=== PATIENT | male | born 1955 | race African-American/Black ===

== ENCOUNTER 2018-10-24 13:14 | Emergency (ER) | payer OTHER ==
[2018-10-24 13:24] VITALS: TEMP 97.2; BMI 25.1
--- NOTE | 2018-10-24 15:36 | PDOC ---
Rapid Medical Evaluation Chief Complaint: Revisit, Lab Variance Time Seen by Provider: 10/24/18 15:25 Medical Evaluation: Allergies Allergy/AdvReac Type Severity Reaction Status Date / Time No Known Allergies Allergy Verified 10/24/18 13:20 Vital Signs Temp Pulse Resp BP Pulse Ox 97.2 F L 55 L 18 96/58 L 99 10/24/18 13:21 10/24/18 13:21 10/24/18 13:21 10/24/18 13:21 10/24/18 13:21 10/24/18 15:31 CC: pt left [facility] today after being admitted for pancreatitis on since he had c/o of vomitting and upper abd pain. Pt is a daily etoh abuser and has underlying psych d/o. Pt resides at a adult home and is accompanied by staff for " clearance". pt has no complaints presently Exam: no abd tenderness, vss, no jaundice Plan: cbc, comp, lipase, ua, iv Discharge Disposition - Diagnosis Laboratory test - Discharge Dispostion Last Admission D/C Date: 02/20/12 - Referrals - Patient Instructions - Post Discharge Activity
[2018-10-24 16:21] LABS: BASO % 0.7 % (0-2.0); EOS % 3.8 % (0-4.5); HEMOGLOBIN 15.8 GM/dL (11.7-16.9); LYMPH % 30.2 % (8-40); MCH 30.4 pg (25.7-33.7); MCHC 34.4 g/dl (32.0-35.9); MEAN CELL VOLUME 88.3 fl (80-96); MEAN PLT VOLUME 9.1 fl (7.5-11.1); MONO % 11.8 % (3.8-10.2); NEUT % 53.5 % (42.8-82.8); PLATELET COUNT 150 K/MM3 (134-434); RBC 5.21 M/mm3 (4.00-5.60); RDW 15.1 % (11.9-15.9)
--- NOTE | 2018-10-24 16:23 | PDOC ---
History of Present Illness - General Chief Complaint: Revisit, Lab Variance Stated Complaint: EVALUATION Time Seen by Provider: 10/24/18 15:25 History Source: Patient Exam Limitations: No Limitations - History of Present Illness Initial Comments: 10/24/18 16:59 CHIEF COMPLAINT: Lab tests HISTORY OF PRESENT ILLNESS: This is a 63-year-old male with a history of alcohol abuse, admission for alcohol detox, and alcoholic pancreatitis. He was admitted at [facility] over the weekend with pancreatitis. He signed out AMA. His living facility requires him to be reevaluated prior to returning home. The patient denies abdominal pain, nausea/vomiting, fevers/chills, or any other symptoms. He reports a prior to his admission he had "one drink of liquor and it didn't agree with me." He denies anxiety, nausea, headache, tremors, or any other withdrawal symptoms. Patient feels that he is in his usual state of health and would like to return home. Vital signs on arrival are unremarkable. REVIEW OF SYSTEMS: GENERAL/CONSTITUTIONAL: No fever or chills. No weakness. No weight change. HEAD, EYES, EARS, NOSE AND THROAT: No change in vision. No ear pain or discharge. No sore throat. CARDIOVASCULAR: No chest pain or palpitations. RESPIRATORY: No cough, wheezing, or shortness of breath. GASTROINTESTINAL: No nausea, vomiting, diarrhea or constipation. GENITOURINARY: No dysuria, frequency, or change in urination. MUSCULOSKELETAL: No joint or muscle swelling or pain. No neck or back pain. SKIN: No rash or easy bruising. NEUROLOGIC: No headache, vertigo, loss of consciousness, or loss of sensation. PSYCHIATRIC: No depression or anxiety. ENDOCRINE: No increased thirst. No abnormal weight change. HEMATOLOGIC/LYMPHATIC: No anemia, easy bleeding, or history of blood clots. ALLERGIC/IMMUNOLOGIC: No hives or skin allergy. No latex allergy. PHYSICAL EXAM: GENERAL: The patient is awake, alert, and fully oriented, in no acute distress. HEAD: Normal with no signs of trauma. ENT: Pupils equal, round and reactive to light, extraocular movements intact, sclera anicteric, conjunctiva clear. Neck supple. LUNGS: Clear to auscultation bilaterally. Normal excursion. No respiratory distress or use of accessory muscles. CV: RRR, S1/S2, no MRG. Cap refill < 2 sec. ABDOMEN: Soft, non-distended, non-tender. EXTREMITIES: Normal range of motion, no edema. NEUROLOGICAL: Normal speech, normal gait. CN II-XII grossly intact. PSYCH: Flat affect. SKIN: Warm, dry, normal turgor, no rashes or lesions noted. Past History - Past Medical History Allergies/Adverse Reactions: Allergies Allergy/AdvReac Type Severity Reaction Status Date / Time No Known Allergies Allergy Verified 10/24/18 13:20 Home Medications: Ambulatory Orders Benztropine Mesylate [Cogentin -] 1 mg PO BID 02/19/12 Risperidone [Risperdal] 1 mg PO BID 02/19/12 Diphenhydramine HCl [Benadryl -] 25 mg PO HS 10/24/18 Tamsulosin HCl [Flomax] 0.4 mg PO HS 10/24/18 Asthma: No Cardiac Disorders: No COPD: No Diabetes: No GI Disorders: No Disorders: No HTN: No Kidney Stones: No Seizures: Yes (alcohol related) - Surgical History Abdominal Surgery: No Appendectomy: No Cardiac Surgery: No Cholecystectomy: No Lung Surgery: No Neurologic Surgery: No Orthopedic Surgery: Yes (SX ON LEFT WRIST DUE TO FALL AT 16 YRS OLD) - Reproductive History Testicular Surgery: No - Suicide/Smoking/Psychosocial Hx Smoking History: Current some day smoker Number of Cigarettes Smoked Daily: 5 Information on smoking cessation initiated: No Hx Alcohol Use: Yes Substance Use Type: Alcohol Hx Substance Use Treatment: Yes *Physical Exam - Vital Signs Last Vital Signs Temp Pulse Resp BP Pulse Ox 97.2 F L 55 L 18 96/58 L 99 10/24/18 13:21 10/24/18 13:21 10/24/18 13:21 10/24/18 13:21 10/24/18 13:21 Moderate Sedation - Procedure Monitoring Vital Signs: Procedure Monitoring Vital Signs Temperature 97.2 F L 10/24/18 13:21 Pulse Rate 55 L 10/24/18 13:21 Respiratory Rate 18 10/24/18 13:21 Blood Pressure 96/58 L 10/24/18 13:21 O2 Sat by Pulse Oximetry (%) 99 10/24/18 13:21 ED Treatment Course - LABORATORY CBC & Chemistry Diagram: 10/24/18 16:10 10/24/18 16:10 Medical Decision Making - Medical Decision Making 10/24/18 17:03 A/P: 63-year-old male with recent admission for pancreatitis, returns asymptomatic but needing reevaluation prior to readmission to his living facility. 1. Labs including CBC, CMP, lipase 2. By mouth trial Lipase 598, not within range of acute pancreatitis. LFTs mildly elevated, but lower than at prior visit. Tolerating PO. Will dc to facility - discussed with [facility] staff who will pick up attendant patient. *DC/Admit/Observation/Transfer Diagnosis at time of Disposition: Laboratory test - Discharge Dispostion Disposition: HOME Condition at time of disposition: Stable Decision to Admit order: No - Referrals Referrals: [facility] [place] [Provider Group] - Patient Instructions Printed Discharge Instructions: [place] Diet, DI for Pancreatitis Additional Instructions: Mr Irwin is cleared to return to [facility]. -Rest and stay well-hydrated -Slowly introduce a bland diet (instructions enclosed) -Follow up with a primary care doctor - referral enclosed if you do not have one -Return for abdominal pain, vomiting/inability to keep down fluids, or any other concerning symptoms - Post Discharge Activity
[2018-10-24 16:51] LABS: ALBUMIN 3.6 g/dl (3.4-5.0); ALK PHOS 67 U/L (45-117); ANION GAP 7 MMOL/L (8-16); BILIRUBIN,TOTAL 0.8 mg/dL (0.2-1); BLOOD UREA NITROGEN 14 mg/dL (7-18); CALCIUM 8.3 mg/dL (8.5-10.1); CHLORIDE 104 mmol/L (98-107); CO2 25 mmol/L (21-32); GLUCOSE,RANDOM 97 mg/dL (74-106); LIPASE 598 U/L (73-393); POTASSIUM 4.2 mmol/L (3.5-5.1); SGOT/AST 70 U/L (15-37); SGPT/ALT 67 U/L (13-61); SODIUM 136 mmol/L (136-145); TOT PROT 7.5 g/dl (6.4-8.2)
[2018-10-24 16:58] LABS: URINE APPEARANCE CLEAR; URINE BILIRUBIN NEGATIVE (<2.0 mg/dL); URINE COLOR YELLOW; URINE GLUCOSE (UA) NEGATIVE (NEGATIVE); URINE KETONE NEGATIVE (NEGATIVE); URINE LEUK ESTERASE NEGATIVE (NEGATIVE); URINE NITRITE NEGATIVE (NEGATIVE); URINE PROTEIN NEGATIVE (NEGATIVE); URINE UROBILINOGEN 4.0 E.U/dl mg/dL (0.2-1.0)
[2018-10-24 17:18] VITALS: BP 134/86
[2018-10-24 17:21] VITALS: PULSE 55
== END 2018-10-24 17:23 | disposition home or self-care (01) ==
LOC: JER 13:14
DX: K85.90 Acute pancreatitis without necrosis or infection, unspecified (principal)
CPT/HCPCS: 36415; 80053; 81003; 83690; 85025; 99282-25

== ENCOUNTER 2018-10-31 10:22 | Inpatient (IN) | payer OTHER ==
--- NOTE | 2018-10-31 12:34 | PDOC ---
History of Present Illness - General Chief Complaint: Pain, Acute Stated Complaint: PCP SENT FOR ADMIN Time Seen by Provider: 10/31/18 11:56 History Source: Patient Exam Limitations: No Limitations - History of Present Illness Travel History: No Initial Comments: 10/31/18 12:10 63-year-old male with history of recent pancreatitis, alcohol induced pancreatitis, alcohol related seizures and underlying psychiatric disorder presents with nausea vomiting upper abdominal pain, and mild generalized weakness. Patient states was discharged here last week and went back to his assisted living psychiatric facility where he states again went back to drinking alcohol and now with symptoms as mentioned above. Patient denies fever , chills, bloody stool, bloody emesis, no abdominal pain, chest pain, shortness of breath. Timing/Duration: reports: intermittent Quality: reports: moderate, cramping Abdominal Pain Onset Location: reports: RUQ, epigastric Pain Radiation: reports: no radiation Activities at Onset: reports: none Aggravating Factors: improves with: None Alleviating Factors: improves with: None Past History - Travel Traveled outside of the country in the last 30 days: No - Past Medical History Allergies/Adverse Reactions: Allergies Allergy/AdvReac Type Severity Reaction Status Date / Time No Known Allergies Allergy Verified 10/31/18 10:37 Home Medications: Ambulatory Orders Benztropine Mesylate [Cogentin -] 1 mg PO BID 02/19/12 Risperidone [Risperdal] 1 mg PO BID 02/19/12 Diphenhydramine HCl [Benadryl -] 25 mg PO HS 10/24/18 Asthma: No Cardiac Disorders: No COPD: No Diabetes: No GI Disorders: No Disorders: No HTN: No Kidney Stones: No Seizures: Yes (alcohol related) - Surgical History Abdominal Surgery: No Appendectomy: No Cardiac Surgery: No Cholecystectomy: No Lung Surgery: No Neurologic Surgery: No Orthopedic Surgery: Yes (SX ON LEFT WRIST DUE TO FALL AT 16 YRS OLD) - Reproductive History Testicular Surgery: No - Immunization History Immunization Up to Date: Yes - Suicide/Smoking/Psychosocial Hx Smoking History: Current every day smoker Number of Cigarettes Smoked Daily: 5 Information on smoking cessation initiated: No Hx Alcohol Use: Yes (DAILY) Drug/Substance Use Hx: No Substance Use Type: Alcohol Hx Substance Use Treatment: Yes Patient Lives Alone: No Lives with/in: assisted living Abd/GI Specific PMHX - Complaint Specific PMHX Hepatitis: No Pancreatitis: No Review of Systems - Review of Systems Able to Perform ROS?: Yes Constitutional: Yes: Weakness HEENTM: No: Symptoms Reported Respiratory: No: Symptoms reported Cardiac (ROS): No: Symptoms Reported ABD/GI: Yes: Nausea, Vomiting, Abdominal cramping : No: Symptoms Reported Musculoskeletal: No: Symptoms Reported Integumentary: No: Symptoms Reported Neurological: No: Symptoms reported *Physical Exam - Vital Signs Last Vital Signs Temp Pulse Resp BP Pulse Ox 98.8 F 78 16 116/77 95 10/31/18 10:38 10/31/18 10:38 10/31/18 10:38 10/31/18 10:38 10/31/18 10:38 - Physical Exam General Appearance: Yes: Nourished, Appropriately Dressed. No: Apparent Distress HEENT: negative: Pale Conjunctivae Neck: positive: Supple Respiratory/Chest: positive: Lungs Clear, Normal Breath Sounds. negative: Respiratory Distress, Accessory Muscle Use Cardiovascular: positive: Regular Rhythm, Regular Rate. negative: Murmur Gastrointestinal/Abdominal: positive: Soft, Tenderness (epigastric and RUQ tenderness) Musculoskeletal: negative: CVA Tenderness Extremity: positive: Normal Capillary Refill. negative: Pedal Edema Integumentary: positive: Normal Color, Warm, Moist Neurologic: positive: Motor Strength 5/5 (ambulatory), Other (fine tremors to upper extremity x2 ) Moderate Sedation - Procedure Monitoring Vital Signs: Procedure Monitoring Vital Signs Temperature 98.8 F 10/31/18 10:38 Pulse Rate 78 10/31/18 10:38 Respiratory Rate 16 10/31/18 10:38 Blood Pressure 116/77 10/31/18 10:38 O2 Sat by Pulse Oximetry (%) 95 10/31/18 10:38 Heart Score/ECG Review - ECG Intrepretation Rhythm: Regular Rhythm (52) ED Treatment Course - LABORATORY CBC & Chemistry Diagram: 10/31/18 12:00 10/31/18 14:05 Medical Decision Making - Medical Decision Making 10/31/18 12:37 CC: etoh hx w/ recent pancreatitis ( dx'd at [place]) seen here on 10/24 on discharged home ( lipase 500s). Now w/ upper abd pain, n/v/weakness Exam: ruq and epigastric tenderness, vss, fine tremors to upper extremeties Plan: labs, ivf, zofran, protonix, urine, ekg, ativan 1mg iv 10/31/18 15:28 Laboratory Tests 10/31/18 10/31/18 12:00 14:05 WBC 6.4 Hgb 15.5 Hct 44.8 Plt Count 227 D Monocytes % 12.6 H Sodium 134 L Potassium 5.9 H Chloride 102 Carbon Dioxide 26 Anion Gap 6 L BUN 13 Creatinine 1.4 H Creat Clearance w eGFR 51.02 Random Glucose 77 Calcium 8.8 Magnesium 2.0 AST 133 H ALT 78 H Alkaline Phosphatase 87 Total Protein 8.4 H Albumin 3.5 Total Amylase 256 H Lipase 672 H Patient ordered for ammonia level, Kayexalate, an abdominal CT along with second liter of fluid and nothing by mouth judy esparza 1. 10/31/18 16:43 Consider for admission secondary to hyperkalemia and elevated lipase and amylase and alcohol-related withdrawal *DC/Admit/Observation/Transfer Diagnosis at time of Disposition: Hyperkalemia, Elevated lipase, Tremor of both hands, Alcohol abuse - Discharge Dispostion Decision to Admit order: Yes - Referrals - Patient Instructions - Post Discharge Activity
[2018-10-31] MEDS ORDERED: PANTOPRAZOLE SODIUM 40 MG in SODIUM CHLORIDE 100 ML IVPB ONE (12:39)
[2018-10-31] MEDS ORDERED: ONDANSETRON 4 MG/2 ML VIAL IVPUSH ONE (12:39)
[2018-10-31] MEDS ORDERED: SODIUM CHLORIDE 1,000 ML IV STA ×2 (12:39→15:29)
--- NOTE | 2018-10-31 12:41 | PDOC ---
*Physical Exam - Vital Signs Last Vital Signs Temp Pulse Resp BP Pulse Ox 98.8 F 78 16 116/77 95 10/31/18 10:38 10/31/18 10:38 10/31/18 10:38 10/31/18 10:38 10/31/18 10:38 ED Treatment Course - LABORATORY CBC & Chemistry Diagram: 11/01/18 05:40 11/01/18 05:40 Medical Decision Making - Medical Decision Making 10/31/18 12:40 Pt seen by the Advanced Practice Provider under my direct supervision Ancillary studies reviewed I agree with plan as outlined by the Advanced Practice Provider RAAD Riddle *DC/Admit/Observation/Transfer Diagnosis at time of Disposition: Hyperkalemia, Elevated lipase, Tremor of both hands, Alcohol abuse - Discharge Dispostion Condition at time of disposition: Good - Prescriptions - Referrals - Patient Instructions - Post Discharge Activity
[2018-10-31] MEDS ORDERED: ONDANSETRON 4 MG/2 ML VIAL ONE (12:48)
[2018-10-31] MEDS ORDERED: PANTOPRAZOLE SODIUM 40 MG/100 ML BAG IVPB ONE (12:48)
[2018-10-31 14:30] LABS: BASO % 1.1 % (0-2.0); EOS % 0.4 % (0-4.5); HEMATOCRIT 44.8 % (35.4-49); HEMOGLOBIN 15.5 GM/dL (11.7-16.9); LYMPH % 23.5 % (8-40); MCH 30.1 pg (25.7-33.7); MCHC 34.7 g/dl (32.0-35.9); MEAN CELL VOLUME 86.9 fl (80-96); MEAN PLT VOLUME 8.3 fl (7.5-11.1); MONO % 12.6 % (3.8-10.2); NEUT % 62.4 % (42.8-82.8); PLATELET COUNT 227 K/MM3 (134-434); RBC 5.15 M/mm3 (4.00-5.60); RDW 15.2 % (11.9-15.9); WHITE BLOOD COUNT 6.4 K/mm3 (4.0-10.0)
[2018-10-31 14:49] LABS: ALBUMIN 3.5 g/dl (3.4-5.0); ALK PHOS 87 U/L (45-117); AMYLASE 256 U/L (25-115); ANION GAP 6 MMOL/L (8-16); BILIRUBIN,TOTAL 0.9 mg/dL (0.2-1); BLOOD UREA NITROGEN 13 mg/dL (7-18); CALCIUM 8.8 mg/dL (8.5-10.1); CHLORIDE 102 mmol/L (98-107); CO2 26 mmol/L (21-32); CREATININE 1.4 mg/dL (0.55-1.3); GLUCOSE,RANDOM 77 mg/dL (74-106); LIPASE 672 U/L (73-393); POTASSIUM 5.9 mmol/L (3.5-5.1); SGOT/AST 133 U/L (15-37); SGPT/ALT 78 U/L (13-61); SODIUM 134 mmol/L (136-145); TOT PROT 8.4 g/dl (6.4-8.2)
[2018-10-31] MEDS ORDERED: LORazepam 2 MG/ML SDV VIAL ONE (14:54)
[2018-10-31] MEDS ORDERED: SODIUM POLYSTYRENE SULFONATE 15 GM/60 ML BOTTLE PO ONE (15:29)
--- NOTE | 2018-10-31 16:14 | EKG ---
Test Reason : Blood Pressure : / mmHG Vent. Rate : 052 BPM Atrial Rate : 052 BPM P-R Int : 162 ms QRS Dur : 132 ms QT Int : 474 ms P-R-T Axes : 056 -52 045 degrees QTc Int : 440 ms SINUS BRADYCARDIA LEFT AXIS DEVIATION RIGHT BUNDLE BRANCH BLOCK ABNORMAL ECG NO PREVIOUS ECGS AVAILABLE Confirmed by BOO BLARI, DESTINY ([id number]) on 10/31/2018 4:13:55 PM Referred By: Confirmed By:DESTINY HADDAD MD
--- NOTE | 2018-10-31 18:19 | HP ---
CHIEF COMPLAINT: Abdominal Pain/vomiting/diarrhea 1 week PCP: HISTORY OF PRESENT ILLNESS: 63 yo male with PMH alcoholic pancreatitis (recent admission at [facility] left AMA), 2 withdrawal seizures in the past, and possible psych disorder admitted with abdominal pain, nausea, vomiting, and diarrhea for 1 week. As per chart he was recently admitted at [facility] and treated for pancreatitis, he reportedly left AMA but could not go back to his assisted living with pancreatitis, so he was evaluated in the [facility] ED from which he was deemed medically safe for discharge at that time. He returned to his assisted living facility, began drinking again about 5-6 cans of beer per day. He presents today with 1 week of nausea, vomiting (nonbloody), and diarrhea. He states he is having abdominal pain. He is very adamant that his last drink was yesterday and he has not vomited since yesterday as well. As far as history of seizures he states he has had 2 withdrawal seizures in the past, not within the last year. He denies any fevers but endorses some chills. ER course was notable for: (1) Lipase 675 (2) CT Abd ordered, pending (3) 1 mg ativan IV Recent Travel: none PAST MEDICAL HISTORY: as above PAST SURGICAL HISTORY: Left wrist surgery 16 yrs old Social History: Smokin cigars per day Alcohol: 5-6 beers per day Drugs: Denies Family History: Allergies No Known Allergies Allergy (Verified 10/31/18 10:37) HOME MEDICATIONS: Home Medications Medication Instructions Recorded Benztropine Mesylate [Cogentin -] 1 mg PO BID 02/19/12 Risperidone [Risperdal] 1 mg PO BID 02/19/12 Diphenhydramine HCl [Benadryl -] 25 mg PO HS 10/24/18 REVIEW OF SYSTEMS CONSTITUTIONAL: chills Absent: fever, , diaphoresis, generalized weakness, malaise, loss of appetite, weight change HEENT: Absent: rhinorrhea, nasal congestion, throat pain, throat swelling, difficulty swallowing, mouth swelling, ear pain, eye pain, visual changes CARDIOVASCULAR: Absent: chest pain, syncope, palpitations, irregular heart rate, lightheadedness , peripheral edema RESPIRATORY: Absent: cough, shortness of breath, dyspnea with exertion, orthopnea, wheezing, stridor, hemoptysis GASTROINTESTINAL: abdominal pain, nausea, vomiting, diarrhea Absent: , abdominal distension, constipation, melena, hematochezia GENITOURINARY: Absent: dysuria, frequency, urgency, hesitancy, hematuria, flank pain, genital pain MUSCULOSKELETAL: Absent: myalgia, arthralgia, joint swelling, back pain, neck pain SKIN: Absent: rash, itching, pallor HEMATOLOGIC/IMMUNOLOGIC: Absent: easy bleeding, easy bruising, lymphadenopathy, frequent infections ENDOCRINE: Absent: unexplained weight gain, unexplained weight loss, heat intolerance, cold intolerance NEUROLOGIC: Absent: headache, focal weakness or paresthesias, dizziness, unsteady gait, seizure, mental status changes, bladder or bowel incontinence PSYCHIATRIC: Absent: anxiety, depression, suicidal or homicidal ideation, hallucinations. PHYSICAL EXAMINATION Vital Signs - 24 hr 10/31/18 10:38 Temperature 98.8 F Pulse Rate 78 Respiratory 16 Rate Blood Pressure 116/77 O2 Sat by Pulse 95 Oximetry (%) GENERAL: A&O, no acute distress HEAD: Normocephalic, atraumatic. EYES: PERRL, no scleral icterus EARS, NOSE, THROAT: oropharynx clear without exudates. Moist mucous membranes. NECK: supple without lymphadenopathy LUNGS: CTA b/l, no crackles or wheezes HEART: Regular rate and rhythm, normal S1 and S2 without murmur ABDOMEN: Soft, RUQ and epigastric region tender to palpation, normoactive bowel sounds MUSCULOSKELETAL: No bony deformities or tenderness. EXTREMITIES: No peripheral edema. NEUROLOGICAL: Cranial nerves II-XII grossly intact. Normal speech. PSYCHIATRIC: Cooperative. Good eye contact. Appropriate mood and affect. Laboratory Results - last 24 hr 10/31/18 10/31/18 10/31/18 12:00 14:05 16:55 WBC 6.4 RBC 5.15 Hgb 15.5 Hct 44.8 MCV 86.9 MCH 30.1 MCHC 34.7 RDW 15.2 Plt Count 227 D MPV 8.3 Absolute Neuts (auto) 4.0 Neutrophils % 62.4 Lymphocytes % 23.5 D Monocytes % 12.6 H Eosinophils % 0.4 D Basophils % 1.1 Nucleated RBC % 0 Sodium 134 L Potassium 5.9 H Chloride 102 Carbon Dioxide 26 Anion Gap 6 L BUN 13 Creatinine 1.4 H Creat Clearance w eGFR 51.02 Random Glucose 77 Calcium 8.8 Magnesium 2.0 Total Bilirubin 0.9 AST 133 H ALT 78 H Alkaline Phosphatase 87 LD Total 684 H Total Protein 8.4 H Albumin 3.5 Total Amylase 256 H Lipase 672 H ASSESSMENT/PLAN: 63 yo male with PMH alcoholic pancreatitis (recent admission at [facility] left AMA), 2 withdrawal seizures in the past, and possible psych disorder admitted with abdominal pain, nausea, vomiting, and diarrhea for 1 week Alcoholic Hepatitis vs Alcoholic Pancreatitis -Pt with recent admission at other institution for pancreatitis -Lipase noted to be 675, less that 3X upper limit but elevation noted -Pt with clinical symptoms of pancreatitis -CT Abd pending, if no signs of pancreatitis then more likely alcoholic hepatitis with mildly elevated LFTs noted -NPO for tonight -LR @ 125 cc/hr -Hold Abx for now pending imaging Concern for Alcohol Withdrawal -Monitor CIWA for signs of alcohol withdrawal -Ativan PRN if CIWA > 8 -Current CIWA at 3 -last drink was yesterday -Banana Bag -Multivitamin -Thiamine and Folate PO Daily in AM DVT Prophylaxis -Heparin 5000 units SQ TID FEN -Fluids: LR @ 125 cc/hr -Electrolytes: No electrolyte abnormalities, BMP in AM -Nutrition: NPO Disposition Med/Surg Visit type - Emergency Visit Emergency Visit: Yes Care time: The patient presented to the Emergency Department on the above date and was hospitalized for further evaluation of their emergent condition. - New Patient This patient is new to me today: Yes Date on this admission: 10/31/18 - Critical Care Critical Care patient: No
[2018-10-31] MEDS ORDERED: LORazepam 1 MG TABLET PO PRN (18:22)
[2018-10-31] MEDS ORDERED: FOLIC ACID INJECTION - 1 MG, THIAMINE HCL 100 MG, MULTIVIT INJECTION ADULT 10 ML in SOD... IVPB ONE ×2 (18:30→21:25)
[2018-10-31] MEDS: LACTATED RINGERS SOLUTION 1,000 ML IV SCH (19:20)
--- NOTE | 2018-10-31 21:15 | PN ---
Teaching Attending Note Name of Resident: Kush Hinton ATTENDING PHYSICIAN STATEMENT I saw and evaluated the patient. I reviewed the resident's note and discussed the case with the resident. I agree with the resident's findings and plan as documented. SUBJECTIVE: Complains of ongoing abdominal pain/N/V/D. No fever/chills. No reported falls/seizures/LOC. No melena/hematochezia/hematemesis. OBJECTIVE: Afebrile, Hemodynamically Stable Last Vital Signs Temp Pulse Resp BP Pulse Ox 98.8 F 78 16 116/77 95 10/31/18 10:38 10/31/18 10:38 10/31/18 10:38 10/31/18 10:38 10/31/18 10:38 HEENT - Atraumatic, Normocephalic. Mild tremor of outstretched arms. Heart - S1, S2, RRR Lungs - Clear to auscultation Abdomen - Mild epigastric tenderness. Soft, no guarding/rebound. Bowel Sounds normal. Extremities - No edema/ No calf tenderness. Neuro - AAO x 2. Moving all 4 extremities. Laboratory Results - last 24 hr 10/31/18 10/31/18 10/31/18 12:00 14:05 16:55 WBC 6.4 RBC 5.15 Hgb 15.5 Hct 44.8 MCV 86.9 MCH 30.1 MCHC 34.7 RDW 15.2 Plt Count 227 D MPV 8.3 Absolute Neuts (auto) 4.0 Neutrophils % 62.4 Lymphocytes % 23.5 D Monocytes % 12.6 H Eosinophils % 0.4 D Basophils % 1.1 Nucleated RBC % 0 Sodium 134 L Potassium 5.9 H Chloride 102 Carbon Dioxide 26 Anion Gap 6 L BUN 13 Creatinine 1.4 H Creat Clearance w eGFR 51.02 Random Glucose 77 Calcium 8.8 Magnesium 2.0 Total Bilirubin 0.9 AST 133 H ALT 78 H Alkaline Phosphatase 87 LD Total 684 H Total Protein 8.4 H Albumin 3.5 Total Amylase 256 H Lipase 672 H Current Medications Generic Name Dose Route Start Last Admin Trade Name Freq PRN Reason Stop Dose Admin Benztropine Mesylate 1 mg 10/31/18 22:00 Cogentin - PO BID MULU Diphenhydramine HCl 25 mg 10/31/18 22:00 Benadryl - PO HS MULU Folic Acid 1 mg 11/01/18 10:00 Folic Acid - PO DAILY [facility] Heparin Sodium (Porcine) 5,000 unit 10/31/18 22:00 Heparin - SQ TID MULU Lactated Ringer's 1,000 mls @ 125 mls/hr 10/31/18 17:45 10/31/18 19:20 Lactated Ringers Solution IV 125 mls/hr ASDIR MULU Administration Folic Acid 1 mg/ Thiamine HCl 1,000 mls @ 250 mls/hr 10/31/18 18:30 10/31/18 19:20 100 mg/ Multivitamins/Minerals IVPB 10/31/18 22:29 250 mls/hr 10 ml/ Sodium Chloride ONCE ONE Administration Lorazepam 1 mg 10/31/18 18:22 Ativan - PO Q4H PRN WITHDRAWAL(CONT SUBST) Multivitamins/Minerals/Vitamin C 1 tab 11/01/18 10:00 Tab-A-Vit - PO DAILY [facility] Risperidone 1 mg 10/31/18 22:00 Risperdal - PO BID [facility] Thiamine HCl 100 mg 11/01/18 10:00 Vitamin B1 - PO DAILY [facility] Home Medications Medication Instructions Recorded Benztropine Mesylate [Cogentin -] 1 mg PO BID 02/19/12 Risperidone [Risperdal] 1 mg PO BID 02/19/12 Diphenhydramine HCl [Benadryl -] 25 mg PO HS 10/24/18 ASSESSMENT AND PLAN: 63 year old male with history of alcohol abuse, alcohol related pancreatitis, alcohol with drawal seizure x 2, psychiatric disorder, currently presents with 1 week history of abdominal pain, nausea, vomiting, diarrhea. He had recent admission at [facility] for Pancreatitis and left AMA. Last alcoholic beverage 10/30 1. Alcoholic Hepatitis likely CT A/P - no evidence of Pancreatitis Lipase mildly elevated at 672 - will monitor. Will attempt to get records from [facility] for CT findings and Lipase levels there. Will keep NPO and hydrate with IV fluids. Zofran for nausea and Morphine prn for pain. Stool for Cdiff if further diarrhea. 2. History of Alcohol Abuse and Alcohol withdrawal Seizures Monitor with CIWA for signs of Alcohol withdrawal and ativan prn as per protocol. Banana Bag, Thiamine, Folate, MVI. 3. Elevated Transaminases Likely sec to Alcoholic Hepatitis Abdominal US requested. Will also send Hepatitis work-up. 4. Psychiatric Condition - no delusions/hallucination. Continue Risperidone and Benztropine. 5. Hyperkalemia, K 5.9. ECG - no changes. Will recheck after Kayexalate (given in ED). DVT Px - Heparin SQ GI Px - PPI
[2018-10-31] MEDS ORDERED: ONDANSETRON 4 MG/2 ML VIAL IVPB PRN (21:18)
[2018-10-31] MEDS ORDERED: MORPHINE SULFATE 2 MG/ML VIAL IVPUSH PRN (21:19)
[2018-10-31] MEDS ORDERED: risperiDONE 0.5 MG TABLET (FP) ONE (22:18)
[2018-10-31] MEDS ORDERED: diphenhydrAMINE HCL 25 MG CAPSULE (FP) PO ONE (22:18)
[2018-10-31] MEDS: risperiDONE 1 MG TABLET (FP) PO SCH (22:19)
[2018-10-31] MEDS: HEPARIN NA (PORCINE) 5,000 UNITS/ML 1ML VIAL SQ SCH (22:19)
[2018-10-31] MEDS: diphenhydrAMINE HCL 25 MG CAPSULE (FP) PO SCH (22:19)
[2018-10-31] MEDS: BENZTROPINE MESYLATE 1 MG TABLET (FP) PO SCH (22:35)
[2018-11-01] MEDS: HEPARIN NA (PORCINE) 5,000 UNITS/ML 1ML VIAL SQ SCH ×3 (05:52→22:08)
[2018-11-01 07:17] LABS: BASO % 0.9 % (0-2.0); EOS % 3.3 % (0-4.5); HEMATOCRIT 43.7 % (35.4-49); HEMOGLOBIN 14.1 GM/dL (11.7-16.9); LYMPH % 35.8 % (8-40); MCH 28.4 pg (25.7-33.7); MCHC 32.3 g/dl (32.0-35.9); MEAN CELL VOLUME 87.8 fl (80-96); MEAN PLT VOLUME 8.7 fl (7.5-11.1); MONO % 12.7 % (3.8-10.2); NEUT % 47.3 % (42.8-82.8); PLATELET COUNT 189 K/MM3 (134-434); RBC 4.97 M/mm3 (4.00-5.60); RDW 14.6 % (11.9-15.9); WHITE BLOOD COUNT 5.1 K/mm3 (4.0-10.0)
[2018-11-01 07:25] LABS: INR 1.1 (0.83-1.09)
[2018-11-01] MEDS: LACTATED RINGERS SOLUTION 1,000 ML IV SCH ×2 (08:00→15:42)
[2018-11-01 08:50] LABS: ALBUMIN 2.6 g/dl (3.4-5.0); ALK PHOS 62 U/L (45-117); ANION GAP 4 MMOL/L (8-16); BILIRUBIN,TOTAL 0.8 mg/dL (0.2-1); BLOOD UREA NITROGEN 19 mg/dL (7-18); CALCIUM 7.8 mg/dL (8.5-10.1); CHLORIDE 109 mmol/L (98-107); CO2 26 mmol/L (21-32); CREATININE 1.1 mg/dL (0.55-1.3); GLUCOSE,RANDOM 80 mg/dL (74-106); LIPASE 743 U/L (73-393); PHOSPHOROUS 3.2 mg/dL (2.5-4.9); POTASSIUM 4.2 mmol/L (3.5-5.1); SGOT/AST 74 U/L (15-37); SGPT/ALT 58 U/L (13-61); SODIUM 139 mmol/L (136-145); TOT PROT 5.9 g/dl (6.4-8.2)
--- NOTE | 2018-11-01 09:13 | PN ---
Physical Exam: SUBJECTIVE: Patient seen and examined this AM. He states he is feeling better and his abdominal is improving. He denies any nausea/vomiting/diarrhea overnight , has not had since 2 days ago OBJECTIVE: Vital Signs Period Temp Pulse Resp BP Sys/العلي Pulse Ox Last 24 Hr 97.8 F-98.8 F 42-78 16-20 116-139/77-92 95-97 GENERAL: A&O, no acute distress HEAD: Normocephalic, atraumatic. EYES: PERRL, no scleral icterus EARS, NOSE, THROAT: oropharynx clear without exudates. Moist mucous membranes. NECK: supple without lymphadenopathy LUNGS: CTA b/l, no crackles or wheezes HEART: Regular rate and rhythm, normal S1 and S2 without murmur ABDOMEN: Soft, RUQ and epigastric region tender to palpation, normoactive bowel sounds MUSCULOSKELETAL: No bony deformities or tenderness. EXTREMITIES: No peripheral edema. Fine tremor in fingertips NEUROLOGICAL: Cranial nerves II-XII grossly intact. Normal speech. PSYCHIATRIC: Cooperative. Good eye contact. Appropriate mood and affect. Laboratory Results - last 24 hr 10/31/18 10/31/18 10/31/18 12:00 14:05 16:55 WBC 6.4 RBC 5.15 Hgb 15.5 Hct 44.8 MCV 86.9 MCH 30.1 MCHC 34.7 RDW 15.2 Plt Count 227 D MPV 8.3 Absolute Neuts (auto) 4.0 Neutrophils % 62.4 Lymphocytes % 23.5 D Monocytes % 12.6 H Eosinophils % 0.4 D Basophils % 1.1 Nucleated RBC % 0 PT with INR INR Sodium 134 L Potassium 5.9 H Chloride 102 Carbon Dioxide 26 Anion Gap 6 L BUN 13 Creatinine 1.4 H Creat Clearance w eGFR 51.02 Random Glucose 77 Calcium 8.8 Phosphorus Magnesium 2.0 Total Bilirubin 0.9 AST 133 H ALT 78 H Alkaline Phosphatase 87 LD Total 684 H Total Protein 8.4 H Albumin 3.5 Total Amylase 256 H Lipase 672 H 11/01/18 11/01/18 11/01/18 05:40 05:40 05:40 WBC 5.1 RBC 4.97 Hgb 14.1 Hct 43.7 MCV 87.8 MCH 28.4 MCHC 32.3 RDW 14.6 Plt Count 189 MPV 8.7 Absolute Neuts (auto) 2.4 Neutrophils % 47.3 D Lymphocytes % 35.8 D Monocytes % 12.7 H Eosinophils % 3.3 D Basophils % 0.9 Nucleated RBC % 0 PT with INR 13.00 INR 1.10 H Sodium 139 Potassium 4.2 Chloride 109 H Carbon Dioxide 26 Anion Gap 4 L BUN 19 H Creatinine 1.1 Creat Clearance w eGFR > 60 Random Glucose 80 Calcium 7.8 L Phosphorus 3.2 Magnesium 2.0 Total Bilirubin 0.8 AST 74 H ALT 58 Alkaline Phosphatase 62 LD Total Total Protein 5.9 L Albumin 2.6 L Total Amylase Lipase 743 H Active Medications Generic Name Dose Route Start Last Admin Trade Name Freq PRN Reason Stop Dose Admin Benztropine Mesylate 1 mg 10/31/18 22:00 10/31/18 22:35 Cogentin - PO 1 mg BID MULU Administration Diphenhydramine HCl 25 mg 10/31/18 22:00 10/31/18 22:19 Benadryl - PO 25 mg HS MULU Administration Folic Acid 1 mg 11/01/18 10:00 Folic Acid - PO DAILY [facility] Heparin Sodium (Porcine) 5,000 unit 10/31/18 22:00 11/01/18 05:52 Heparin - SQ Not Given TID [facility] Lactated Ringer's 1,000 mls @ 125 mls/hr 10/31/18 17:45 10/31/18 19:20 Lactated Ringers Solution IV 125 mls/hr ASDIR MULU Administration Lorazepam 1 mg 10/31/18 18:22 Ativan - PO Q4H PRN WITHDRAWAL(CONT SUBST) Morphine Sulfate 1 mg 10/31/18 21:19 Morphine Sulfate IVPUSH Q6H PRN PAIN LEVEL 6-10 Multivitamins/Minerals/Vitamin C 1 tab 11/01/18 10:00 Tab-A-Vit - PO DAILY [facility] Ondansetron HCl 8 mg 10/31/18 21:18 Zofran Injection IVPB Q8H PRN NAUSEA Pantoprazole Sodium 40 mg 11/01/18 10:00 Protonix Iv IVPUSH DAILY [facility] Risperidone 1 mg 10/31/18 22:00 10/31/18 22:19 Risperdal - PO 1 mg BID MULU Administration Thiamine HCl 100 mg 11/01/18 10:00 Vitamin B1 - PO DAILY [facility] ASSESSMENT/PLAN: 63 yo male with PMH alcoholic pancreatitis (recent admission at [facility] left AMA), 2 withdrawal seizures in the past, and possible psych disorder admitted with abdominal pain, nausea, vomiting, and diarrhea for 1 week Alcoholic Hepatitis -Pt with recent admission at other institution for pancreatitis -Lipase mildly elevated, 743 -CT Abd without acute signs of pancreatitis -RUQ US unremarkable -Tolerating diet well -Medically stable for discharge to [facility] Detox Concern for Alcohol Withdrawal -Monitor CIWA for signs of alcohol withdrawal -Ativan PRN if CIWA > 8 -Current CIWA at 2 -last drink was yesterday -Multivitamin -Thiamine and Folate PO Daily -To go to [facility] for further detox/rehab once bed available, case discussed with Dr. Pro DVT Prophylaxis -Heparin 5000 units SQ TID FEN -Fluids: can d/c as tolerating diet -Electrolytes: No electrolyte abnormalities, BMP in AM -Nutrition: Regular diet Disposition Med/Surg Visit type - Emergency Visit Emergency Visit: Yes ED Registration Date: 10/31/18 Care time: The patient presented to the Emergency Department on the above date and was hospitalized for further evaluation of their emergent condition. - New Patient This patient is new to me today: No - Critical Care Critical Care patient: No
[2018-11-01] MEDS: BENZTROPINE MESYLATE 1 MG TABLET (FP) PO SCH ×2 (09:38→22:08)
[2018-11-01] MEDS: FOLIC ACID 1 MG TABLET (FP) PO SCH (09:38)
[2018-11-01] MEDS: risperiDONE 1 MG TABLET (FP) PO SCH ×2 (09:38→22:08)
[2018-11-01] MEDS: MULTIVITAMINS (DAILY MVI) TABLET (FP) PO SCH (09:38)
[2018-11-01] MEDS: THIAMINE HCL 100 MG TABLET (FP) PO SCH (09:38)
[2018-11-01] MEDS ORDERED: PANTOPRAZOLE SODIUM 40 MG VIAL IVPUSH SCH (10:00)
[2018-11-01 11:42] LABS: URINE APPEARANCE CLEAR; URINE BILIRUBIN NEGATIVE (<2.0 mg/dL); URINE COLOR YELLOW; URINE GLUCOSE (UA) NEGATIVE (NEGATIVE); URINE KETONE NEGATIVE (NEGATIVE); URINE LEUK ESTERASE NEGATIVE (NEGATIVE); URINE NITRITE NEGATIVE (NEGATIVE); URINE PROTEIN NEGATIVE (NEGATIVE); URINE UROBILINOGEN 4.0 E.U/dl mg/dL (0.2-1.0)
[2018-11-01 12:00] LABS: COCAINE, UR NEGATIVE ng/ml (CUTOFF=300); METHADONE, UR NEGATIVE ng/ml (CUTOFF=300); OPIATES, URI NEGATIVE ng/ml (CUTOFF=300); PHENCYCLIDINE,URINE NEGATIVE ng/ml (CUTOFF=25); URINE AMPHETAMINES NEGATIVE ng/ml (CUTOFF=500); URINE BARBITURATES NEGATIVE ng/ml (CUTOFF=200)
[2018-11-01 12:06] LABS: URINE BENZODIAZEPINES POSITIVE ng/ml (CUTOFF=200)
--- NOTE | 2018-11-01 14:34 | PN ---
Teaching Attending Note Name of Resident: Kush Hinton ATTENDING PHYSICIAN STATEMENT I saw and evaluated the patient. I reviewed the resident's note and discussed the case with the resident. I agree with the resident's findings and plan as documented. SUBJECTIVE: Feels better. no further abdominal pain/nausea/vomiting. OBJECTIVE: Afebrile, Hemodynamically Stable. Last Vital Signs Temp Pulse Resp BP Pulse Ox 98.2 F 65 18 126/91 98 11/01/18 13:44 11/01/18 13:44 11/01/18 13:44 11/01/18 13:44 11/01/18 09:00 HEENT - Atraumatic, Normocephalic. Mild tremor of outstretched arms. Heart - S1, S2, RRR Lungs - Clear to auscultation Abdomen - Mild epigastric tenderness on deep palpation. Soft, no guarding/ rebound. Bowel Sounds normal. Extremities - No edema/ No calf tenderness. Neuro - AAO x 2. Moving all 4 extremities. Laboratory Tests 10/31/18 10/31/18 10/31/18 12:00 14:05 16:55 WBC 6.4 RBC 5.15 Hgb 15.5 Hct 44.8 MCV 86.9 MCH 30.1 MCHC 34.7 RDW 15.2 Plt Count 227 D MPV 8.3 Absolute Neuts (auto) 4.0 Neutrophils % 62.4 Lymphocytes % 23.5 D Monocytes % 12.6 H Eosinophils % 0.4 D Basophils % 1.1 Nucleated RBC % 0 PT with INR INR Sodium 134 L Potassium 5.9 H Chloride 102 Carbon Dioxide 26 Anion Gap 6 L BUN 13 Creatinine 1.4 H Creat Clearance w eGFR 51.02 Random Glucose 77 Calcium 8.8 Phosphorus Magnesium 2.0 Total Bilirubin 0.9 AST 133 H ALT 78 H Alkaline Phosphatase 87 LD Total 684 H Total Protein 8.4 H Albumin 3.5 Total Amylase 256 H Lipase 672 H Urine Color Urine Appearance Urine pH Ur Specific [place] Urine Protein Urine Glucose (UA) Urine Ketones Urine Blood Urine Nitrite Urine Bilirubin Urine Urobilinogen Ur Leukocyte Esterase Opiates Screen Methadone Screen Barbiturate Screen Phencyclidine Screen Ur Amphetamines Screen MDMA (Ecstasy) Screen Benzodiazepines Screen Cocaine Screen U Marijuana (THC) Screen 11/01/18 11/01/18 11/01/18 05:40 05:40 05:40 WBC 5.1 RBC 4.97 Hgb 14.1 Hct 43.7 MCV 87.8 MCH 28.4 MCHC 32.3 RDW 14.6 Plt Count 189 MPV 8.7 Absolute Neuts (auto) 2.4 Neutrophils % 47.3 D Lymphocytes % 35.8 D Monocytes % 12.7 H Eosinophils % 3.3 D Basophils % 0.9 Nucleated RBC % 0 PT with INR 13.00 INR 1.10 H Sodium 139 Potassium 4.2 Chloride 109 H Carbon Dioxide 26 Anion Gap 4 L BUN 19 H Creatinine 1.1 Creat Clearance w eGFR > 60 Random Glucose 80 Calcium 7.8 L Phosphorus 3.2 Magnesium 2.0 Total Bilirubin 0.8 AST 74 H ALT 58 Alkaline Phosphatase 62 LD Total Total Protein 5.9 L Albumin 2.6 L Total Amylase Lipase 743 H Urine Color Urine Appearance Urine pH Ur Specific [place] Urine Protein Urine Glucose (UA) Urine Ketones Urine Blood Urine Nitrite Urine Bilirubin Urine Urobilinogen Ur Leukocyte Esterase Opiates Screen Methadone Screen Barbiturate Screen Phencyclidine Screen Ur Amphetamines Screen MDMA (Ecstasy) Screen Benzodiazepines Screen Cocaine Screen U Marijuana (THC) Screen 11/01/18 11/01/18 11:00 11:00 WBC RBC Hgb Hct MCV MCH MCHC RDW Plt Count MPV Absolute Neuts (auto) Neutrophils % Lymphocytes % Monocytes % Eosinophils % Basophils % Nucleated RBC % PT with INR INR Sodium Potassium Chloride Carbon Dioxide Anion Gap BUN Creatinine Creat Clearance w eGFR Random Glucose Calcium Phosphorus Magnesium Total Bilirubin AST ALT Alkaline Phosphatase LD Total Total Protein Albumin Total Amylase Lipase Urine Color Yellow Urine Appearance Clear Urine pH 7.0 Ur Specific [place] 1.016 Urine Protein Negative Urine Glucose (UA) Negative Urine Ketones Negative Urine Blood Negative Urine Nitrite Negative Urine Bilirubin Negative Urine Urobilinogen 4.0 e.u/dl Ur Leukocyte Esterase Negative Opiates Screen Negative Methadone Screen Negative Barbiturate Screen Negative Phencyclidine Screen Negative Ur Amphetamines Screen Negative MDMA (Ecstasy) Screen Negative Benzodiazepines Screen Positive A* Cocaine Screen Negative U Marijuana (THC) Screen Negative Current Medications Generic Name Dose Route Start Last Admin Trade Name Freq PRN Reason Stop Dose Admin Benztropine Mesylate 1 mg 10/31/18 22:00 11/01/18 09:38 Cogentin - PO 1 mg BID MULU Administration Diphenhydramine HCl 25 mg 10/31/18 22:00 10/31/18 22:19 Benadryl - PO 25 mg HS MULU Administration Folic Acid 1 mg 11/01/18 10:00 11/01/18 09:38 Folic Acid - PO 1 mg DAILY MULU Administration Heparin Sodium (Porcine) 5,000 unit 10/31/18 22:00 11/01/18 14:16 Heparin - SQ Not Given TID MULU Lactated Ringer's 1,000 mls @ 125 mls/hr 10/31/18 17:45 11/01/18 08:00 Lactated Ringers Solution IV 125 mls/hr ASDIR MULU Administration Lorazepam 1 mg 10/31/18 18:22 Ativan - PO Q4H PRN WITHDRAWAL(CONT SUBST) Morphine Sulfate 1 mg 10/31/18 21:19 Morphine Sulfate IVPUSH Q6H PRN PAIN LEVEL 6-10 Multivitamins/Minerals/Vitamin C 1 tab 11/01/18 10:00 11/01/18 09:38 Tab-A-Vit - PO 1 tab DAILY MULU Administration Ondansetron HCl 8 mg 10/31/18 21:18 Zofran Injection IVPB Q8H PRN NAUSEA Pantoprazole Sodium 40 mg 11/01/18 10:00 11/01/18 09:38 Protonix Iv IVPUSH 40 mg DAILY MULU Administration Risperidone 1 mg 10/31/18 22:00 11/01/18 09:38 Risperdal - PO 1 mg BID MULU Administration Thiamine HCl 100 mg 11/01/18 10:00 11/01/18 09:38 Vitamin B1 - PO 100 mg DAILY MULU Administration ASSESSMENT AND PLAN: 63 year old male from [facility] with history of alcohol abuse, alcohol related pancreatitis, alcohol withdrawal seizure x 2, psychiatric disorder, currently presents with 1 week history of abdominal pain, nausea, vomiting, diarrhea. He had recent admission at [facility] for Pancreatitis and left AMA. Last alcoholic beverage 10/30/[address] A/P - no evidence of Pancreatitis Lipase mildly elevated at 743, suspect chronic - will monitor. Abdominal pain/nausea/vomiting/diarrhea resolved. Will attempt to get records from [facility] for CT findings and Lipase levels there. Will initiate on diet today. 2. History of Alcohol Abuse and Alcohol withdrawal Seizures Monitor with CIWA for signs of Alcohol withdrawal and ativan prn as per protocol. Banana Bag, Thiamine, Folate, MVI. 3. Elevated Transaminases - improving Likely sec to Alcoholic Hepatitis Abdominal US normal. Hepatitis work-up pending. 4. Psychiatric Condition (unknown) - no delusions/hallucination. Continue Risperidone and Benztropine. 5. Hyperkalemia, resolved s/p Kayexalate. DVT Px - Heparin SQ GI Px - PPI
[2018-11-01] MEDS: NICOTINE 14 MG/24 HOURS TOPICAL PATCH TD SCH (15:41)
--- NOTE | 2018-11-01 17:37 | PN ---
S Progress Note (SOAP) Subjective: patient referred for consultation regarding etoh use , reports 5 x 24 oz cans of beer x " a long time " , withdrawal seizure several years ago , presented to ED with nausea/ vomiting , per medicine patient is medically stable and requesting transfer to [facility] , currently on Ativan prn and not used medication since admission. PMHX : pancreatitis Objective: wnwd resting in bed , + anxiety , mild tremors . Vital Signs - 24 hr 10/31/18 11/01/18 11/01/18 23:30 02:30 05:46 Temperature 97.8 F 97.8 F Pulse Rate 78 42 L Pulse Rate [ 61 Left Radial] Respiratory 18 20 20 Rate Blood Pressure 127/84 139/92 Blood Pressure 120/84 [Left Arm] O2 Sat by Pulse 97 97 Oximetry (%) 11/01/18 11/01/18 11/01/18 09:00 10:00 13:44 Temperature 98 F 98.2 F Pulse Rate 45 L 65 Pulse Rate [ Left Radial] Respiratory 18 18 Rate Blood Pressure 130/70 126/91 Blood Pressure [Left Arm] O2 Sat by Pulse 98 Oximetry (%) 11/01/18 17:36 Assessment: alcohol dependence Plan: continue prn Ativan , transfer to [facility] when bed available . discussed with patient , agreeable w/ POC .
[2018-11-01] MEDS: diphenhydrAMINE HCL 25 MG CAPSULE (FP) PO SCH (22:08)
[2018-11-02 02:14] LABS: HEP.C VIRUS AB >11.0 s/co ratio (0.0-0.9)
[2018-11-02] MEDS: HEPARIN NA (PORCINE) 5,000 UNITS/ML 1ML VIAL SQ SCH ×3 (07:04→21:05)
--- NOTE | 2018-11-02 07:06 | PN ---
Physical Exam: SUBJECTIVE: Patient seen and examined. No new c/o. No abdominal pain, no vomiting. Pending bed at [facility]. OBJECTIVE: Vital Signs Period Temp Pulse Resp BP Sys/العلي Pulse Ox Last 24 Hr 97.2 F-98.2 F 44-65 18-18 106-164/63-91 96-98 Vital Signs Temperature 97.6 F 11/02/18 10:42 Pulse Rate 52 L 11/02/18 10:42 Respiratory Rate 16 11/02/18 10:42 Blood Pressure 115/57 L 11/02/18 10:42 O2 Sat by Pulse Oximetry (%) 96 11/02/18 09:00 GENERAL: The patient is awake, alert, and fully oriented, in no acute distress. LUNGS: Breath sounds equal, clear to auscultation bilaterally, no wheezes, no crackles HEART: Regular rate and rhythm, S1, S2 ABDOMEN: Soft, nontender, nondistended, normoactive bowel sounds, no guarding EXTREMITIES: 2+ pulses, warm, well-perfused, no edema. NEUROLOGICAL: Cranial nerves II through XII grossly intact. Fine tremors outstretched hands, no flapping tremors. Symmetric face, no lateralizing signs. Normal speech, gait not observed. CBC, BMP 11/01/18 05:40 11/01/18 05:40 Laboratory Results - last 24 hr 11/01/18 11/01/18 11/01/18 05:40 05:40 05:40 WBC 5.1 RBC 4.97 Hgb 14.1 Hct 43.7 MCV 87.8 MCH 28.4 MCHC 32.3 RDW 14.6 Plt Count 189 MPV 8.7 Absolute Neuts (auto) 2.4 Neutrophils % 47.3 D Lymphocytes % 35.8 D Monocytes % 12.7 H Eosinophils % 3.3 D Basophils % 0.9 Nucleated RBC % 0 PT with INR 13.00 INR 1.10 H Sodium 139 Potassium 4.2 Chloride 109 H Carbon Dioxide 26 Anion Gap 4 L BUN 19 H Creatinine 1.1 Creat Clearance w eGFR > 60 Random Glucose 80 Calcium 7.8 L Phosphorus 3.2 Magnesium 2.0 Total Bilirubin 0.8 AST 74 H ALT 58 Alkaline Phosphatase 62 Total Protein 5.9 L Albumin 2.6 L Lipase 743 H Urine Color Urine Appearance Urine pH Ur Specific [place] Urine Protein Urine Glucose (UA) Urine Ketones Urine Blood Urine Nitrite Urine Bilirubin Urine Urobilinogen Ur Leukocyte Esterase Opiates Screen Methadone Screen Barbiturate Screen Phencyclidine Screen Ur Amphetamines Screen MDMA (Ecstasy) Screen Benzodiazepines Screen Cocaine Screen U Marijuana (THC) Screen Hepatitis A IgM Ab Hep Bs Antigen Hep B Core IgM Ab Hepatitis C Antibody 11/01/18 11/01/18 11/01/18 05:40 11:00 11:00 WBC RBC Hgb Hct MCV MCH MCHC RDW Plt Count MPV Absolute Neuts (auto) Neutrophils % Lymphocytes % Monocytes % Eosinophils % Basophils % Nucleated RBC % PT with INR INR Sodium Potassium Chloride Carbon Dioxide Anion Gap BUN Creatinine Creat Clearance w eGFR Random Glucose Calcium Phosphorus Magnesium Total Bilirubin AST ALT Alkaline Phosphatase Total Protein Albumin Lipase Urine Color Yellow Urine Appearance Clear Urine pH 7.0 Ur Specific [place] 1.016 Urine Protein Negative Urine Glucose (UA) Negative Urine Ketones Negative Urine Blood Negative Urine Nitrite Negative Urine Bilirubin Negative Urine Urobilinogen 4.0 e.u/dl Ur Leukocyte Esterase Negative Opiates Screen Negative Methadone Screen Negative Barbiturate Screen Negative Phencyclidine Screen Negative Ur Amphetamines Screen Negative MDMA (Ecstasy) Screen Negative Benzodiazepines Screen Positive A* Cocaine Screen Negative U Marijuana (THC) Screen Negative Hepatitis A IgM Ab Negative Hep Bs Antigen Negative Hep B Core IgM Ab Negative Hepatitis C Antibody >11.0 H Active Medications Generic Name Dose Route Start Last Admin Trade Name Freq PRN Reason Stop Dose Admin Benztropine Mesylate 1 mg 10/31/18 22:00 11/01/18 22:08 Cogentin - PO 1 mg BID MULU Administration Diphenhydramine HCl 25 mg 10/31/18 22:00 11/01/18 22:08 Benadryl - PO 25 mg HS MULU Administration Folic Acid 1 mg 11/01/18 10:00 11/01/18 09:38 Folic Acid - PO 1 mg DAILY MULU Administration Heparin Sodium (Porcine) 5,000 unit 10/31/18 22:00 11/02/18 07:04 Heparin - SQ 5,000 unit TID MULU Administration Lactated Ringer's 1,000 mls @ 125 mls/hr 10/31/18 17:45 11/01/18 15:42 Lactated Ringers Solution IV 125 mls/hr ASDIR MULU Administration Lorazepam 1 mg 10/31/18 18:22 Ativan - PO Q4H PRN WITHDRAWAL(CONT SUBST) Multivitamins/Minerals/Vitamin C 1 tab 11/01/18 10:00 11/01/18 09:38 Tab-A-Vit - PO 1 tab DAILY MULU Administration Nicotine 14 mg 11/01/18 15:15 11/01/18 15:41 Nicoderm Patch - TD 14 mg DAILY MULU Administration Ondansetron HCl 8 mg 10/31/18 21:18 Zofran Injection IVPB Q8H PRN NAUSEA Pantoprazole Sodium 40 mg 11/02/18 10:00 Protonix - PO DAILY MULU Risperidone 1 mg 10/31/18 22:00 11/01/18 22:08 Risperdal - PO 1 mg BID MULU Administration Thiamine HCl 100 mg 11/01/18 10:00 11/01/18 09:38 Vitamin B1 - PO 100 mg DAILY MULU Administration ASSESSMENT/PLAN: 63 yo male with PMH alcoholic pancreatitis (recent admission at [facility] left AMA), 2 withdrawal seizures in the past, and possible psych disorder admitted with abdominal pain, nausea, vomiting, and diarrhea for 1 week Alcoholic Hepatitis -Pt with recent admission at other institution for pancreatitis -Lipase mildly elevated, 743 -CT Abd without acute signs of pancreatitis -RUQ US unremarkable -Tolerating diet well -Hep C Ab positive - Gi consult - Qnt PCR hep C order in -Medically stable for discharge to [facility] Detox Concern for Alcohol Withdrawal -Monitor CIWA for signs of alcohol withdrawal -Ativan PRN if CIWA > 8 -Current CIWA at 2 (fine tremors) -last drink was yesterday -Multivitamin -Thiamine and Folate PO Daily -To go to [facility] for further detox/rehab once bed available DVT Prophylaxis -Heparin 5000 units SQ TID FEN -Fluids: LR dcd -Electrolytes: No electrolyte abnormalities, BMP in AM -Nutrition: Regular diet Disposition Med/Surg Visit type - Emergency Visit Emergency Visit: Yes ED Registration Date: 10/31/18 Care time: The patient presented to the Emergency Department on the above date and was hospitalized for further evaluation of their emergent condition. - New Patient This patient is new to me today: Yes Date on this admission: 11/02/18 - Critical Care Critical Care patient: No - Discharge Referral Referred to [facility] Med P.C.: No
[2018-11-02] MEDS ORDERED: PT OWN MED DRAWER 7, Y5N ONE (08:44)
[2018-11-02] MEDS: MULTIVITAMINS (DAILY MVI) TABLET (FP) PO SCH (10:43)
[2018-11-02] MEDS: FOLIC ACID 1 MG TABLET (FP) PO SCH (10:43)
[2018-11-02] MEDS: PANTOPRAZOLE 40 MG TABLET (FP) PO SCH (10:43)
[2018-11-02] MEDS: THIAMINE HCL 100 MG TABLET (FP) PO SCH (10:43)
[2018-11-02] MEDS: NICOTINE 14 MG/24 HOURS TOPICAL PATCH TD SCH (10:43)
[2018-11-02] MEDS: BENZTROPINE MESYLATE 1 MG TABLET (FP) PO SCH ×2 (10:43→21:05)
[2018-11-02] MEDS: LACTATED RINGERS SOLUTION 1,000 ML IV SCH (10:44)
[2018-11-02] MEDS: risperiDONE 1 MG TABLET (FP) PO SCH ×2 (10:44→21:05)
--- NOTE | 2018-11-02 12:24 | PN ---
Teaching Attending Note Name of Resident: Kareen Ji ATTENDING PHYSICIAN STATEMENT I saw and evaluated the patient. I reviewed the resident's note and discussed the case with the resident. I agree with the resident's findings and plan as documented. SUBJECTIVE: Feeling much better. No further abdominal pain/nausea/vomiting. Tolerating oral intake. OBJECTIVE: Afebrile, Hemodynamically Stable. Last Vital Signs Temp Pulse Resp BP Pulse Ox 97.6 F 52 L 16 115/57 L 96 11/02/18 10:42 11/02/18 10:42 11/02/18 10:42 11/02/18 10:42 11/01/18 21:00 HEENT - Atraumatic, Normocephalic. Mild tremor of outstretched arms. Heart - S1, S2, RRR Lungs - Clear to auscultation Abdomen - Soft, non-tender. No guarding/rebound. Bowel Sounds normal. Extremities - No edema/ No calf tenderness. Neuro - AAO x 2. Moving all 4 extremities. Laboratory Results - last 24 hr 11/01/18 05:40 Hepatitis A IgM Ab Negative Hep Bs Antigen Negative Hep B Core IgM Ab Negative Hepatitis C Antibody >11.0 H Current Medications Generic Name Dose Route Start Last Admin Trade Name Freq PRN Reason Stop Dose Admin Benztropine Mesylate 1 mg 10/31/18 22:00 11/02/18 10:43 Cogentin - PO 1 mg BID MULU Administration Diphenhydramine HCl 25 mg 10/31/18 22:00 11/01/18 22:08 Benadryl - PO 25 mg HS MULU Administration Folic Acid 1 mg 11/01/18 10:00 11/02/18 10:43 Folic Acid - PO 1 mg DAILY MULU Administration Heparin Sodium (Porcine) 5,000 unit 10/31/18 22:00 11/02/18 07:04 Heparin - SQ 5,000 unit TID MULU Administration Lactated Ringer's 1,000 mls @ 125 mls/hr 10/31/18 17:45 11/02/18 10:44 Lactated Ringers Solution IV 125 mls/hr ASDIR MULU Administration Lorazepam 1 mg 10/31/18 18:22 Ativan - PO Q4H PRN WITHDRAWAL(CONT SUBST) Multivitamins/Minerals/Vitamin C 1 tab 11/01/18 10:00 11/02/18 10:43 Tab-A-Vit - PO 1 tab DAILY MULU Administration Nicotine 14 mg 11/01/18 15:15 11/02/18 10:43 Nicoderm Patch - TD 14 mg DAILY MULU Administration Ondansetron HCl 8 mg 10/31/18 21:18 Zofran Injection IVPB Q8H PRN NAUSEA Pantoprazole Sodium 40 mg 11/02/18 10:00 11/02/18 10:43 Protonix - PO 40 mg DAILY MULU Administration Risperidone 1 mg 10/31/18 22:00 11/02/18 10:44 Risperdal - PO 1 mg BID MULU Administration Thiamine HCl 100 mg 11/01/18 10:00 11/02/18 10:43 Vitamin B1 - PO 100 mg DAILY MULU Administration ASSESSMENT AND PLAN: 63 year old male from [facility] with history of alcohol abuse, alcohol related pancreatitis, alcohol withdrawal seizure x 2, Schizoaffective Disorder, presented with 1 week history of abdominal pain, nausea, vomiting, diarrhea. He had recent admission at [facility] for Pancreatitis and left AMA. Last alcoholic beverage 10/30/[address] A/P - no evidence of Pancreatitis Lipase mildly elevated, suspect chronic. Abdominal pain/nausea/vomiting/diarrhea resolved. Attempting to get records from [facility] for CT findings and Lipase levels there. Tolerating oral intake. 2. History of Alcohol Abuse and Alcohol withdrawal Seizures Monitor with CIWA for signs of Alcohol withdrawal and ativan prn as per protocol. Banana Bag, Thiamine, Folate, MVI. Evaluated by Addiction Medicine - for transfer to [facility] once bed becomes available. 3. Elevated Transaminases sec to Alcohol excess +/- Hepatitis C Unclear whether this is a known diagnosis. Hep serology on this admission returned HepC Ab positive. Abdominal US normal. If [facility] records do not indicate known Hep C, will consult GI. 4. Schizoaffective Disorder - no delusions/hallucinations. Continue Risperidone and Benztropine. 5. Hyperkalemia, resolved s/p Kayexalate. DVT Px - Heparin SQ GI Px - PPI
[2018-11-02] MEDS: diphenhydrAMINE HCL 25 MG CAPSULE (FP) PO SCH (21:05)
[2018-11-03 01:23] VITALS: BMI 20.9
[2018-11-03] MEDS: HEPARIN NA (PORCINE) 5,000 UNITS/ML 1ML VIAL SQ SCH ×2 (06:30→13:28)
--- NOTE | 2018-11-03 09:28 | CON.GI ---
Consult Consult Specialty:: GI Referred by:: Hospitalist service Reason for Consultation:: Positive HCV antibody - History of Present Illness Chief Complaint: Positive HCV antibody History of Present Illness: 63 y.o. M, former IVDA, current alcohol abuse, admitted with recurrent alcoholic pancreatitis and found to have a positive HCV antibody test, along with elevated AST/ALT. CBC,CMP WBC 5.1 K/mm3 (4.0-10.0) 11/01/18 05:40 RBC 4.97 M/mm3 (4.00-5.60) 11/01/18 05:40 Hgb 14.1 GM/dL (11.7-16.9) 11/01/18 05:40 Hct 43.7 % (35.4-49) 11/01/18 05:40 MCV 87.8 fl (80-96) 11/01/18 05:40 MCH 28.4 pg (25.7-33.7) 11/01/18 05:40 MCHC 32.3 g/dl (32.0-35.9) 11/01/18 05:40 RDW 14.6 % (11.9-15.9) 11/01/18 05:40 Plt Count 189 K/MM3 (134-434) 11/01/18 05:40 MPV 8.7 fl (7.5-11.1) 11/01/18 05:40 Absolute Neuts (auto) 2.4 K/mm3 (1.5-8.0) 11/01/18 05:40 Neutrophils % 47.3 % (42.8-82.8) D 11/01/18 05:40 Lymphocytes % 35.8 % (8-40) D 11/01/18 05:40 Monocytes % 12.7 % (3.8-10.2) H 11/01/18 05:40 Eosinophils % 3.3 % (0-4.5) D 11/01/18 05:40 Basophils % 0.9 % (0-2.0) 11/01/18 05:40 Nucleated RBC % 0 % (0-0) 11/01/18 05:40 Sodium 139 mmol/L (136-145) 11/01/18 05:40 Potassium 4.2 mmol/L (3.5-5.1) 11/01/18 05:40 Chloride 109 mmol/L (98-107) H 11/01/18 05:40 Carbon Dioxide 26 mmol/L (21-32) 11/01/18 05:40 Anion Gap 4 MMOL/L (8-16) L 11/01/18 05:40 BUN 19 mg/dL (7-18) H 11/01/18 05:40 Creatinine 1.1 mg/dL (0.55-1.3) 11/01/18 05:40 Creat Clearance w eGFR > 60 (>60) 11/01/18 05:40 Random Glucose 80 mg/dL (74-106) 11/01/18 05:40 Calcium 7.8 mg/dL (8.5-10.1) L 11/01/18 05:40 Phosphorus 3.2 mg/dL (2.5-4.9) 11/01/18 05:40 Magnesium 2.0 mg/dL (1.8-2.4) 11/01/18 05:40 Total Bilirubin 0.8 mg/dL (0.2-1) 11/01/18 05:40 AST 74 U/L (15-37) H 11/01/18 05:40 ALT 58 U/L (13-61) 11/01/18 05:40 Alkaline Phosphatase 62 U/L (45-117) 11/01/18 05:40 LD Total 684 U/L (87-246) H 10/31/18 16:55 Total Protein 5.9 g/dl (6.4-8.2) L 11/01/18 05:40 Albumin 2.6 g/dl (3.4-5.0) L 11/01/18 05:40 Total Amylase 256 U/L (25-115) H 10/31/18 14:05 Lipase 743 U/L (73-393) H 11/01/18 05:40 - Alcohol/Substance Use Hx Alcohol Use: Yes (DAILY) - Smoking History Smoking history: Current every day smoker Have you smoked in the past 12 months: Yes Aproximately how many cigarettes per day: 5 Home Medications - Allergies Allergies/Adverse Reactions: Allergies Allergy/AdvReac Type Severity Reaction Status Date / Time No Known Allergies Allergy Verified 10/31/18 10:37 - Home Medications Home Medications: Ambulatory Orders Benztropine Mesylate [Cogentin -] 1 mg PO BID 02/19/12 Risperidone [Risperdal] 1 mg PO BID 02/19/12 Diphenhydramine HCl [Benadryl -] 25 mg PO HS 10/24/18 Physical Exam-GI Vital Signs: Vital Signs Temperature 97.6 F 11/03/18 01:58 Pulse Rate 44 L 11/03/18 05:00 Respiratory Rate 18 11/03/18 05:00 Blood Pressure 112/71 11/03/18 05:00 O2 Sat by Pulse Oximetry (%) 96 11/02/18 21:00 Labs: CBC, BMP 11/01/18 05:40 11/01/18 05:40 INR, PTT INR 1.10 (0.83-1.09) H 11/01/18 05:40 Imaging - Results Cat Scan: Report Reviewed, Image Reviewed Ultrasound: Report Reviewed Problem List - Problems (1) Liver function test abnormality Code(s): R94.5 - ABNORMAL RESULTS OF LIVER FUNCTION STUDIES (2) Laboratory test Code(s): Z01.89 - ENCOUNTER FOR OTHER SPECIFIED SPECIAL EXAMINATIONS Assessment/Plan Abnormal liver chemistries, positive HCV antibody, past h/o IVDA. Pt can be considered for workup and treatment of HCV if he can maintain sobriety and avoid repeated hospitalization. Currently he is not a candidate for treatment.
[2018-11-03] MEDS ORDERED: PT OWN MED DRAWER 7, Y5N ONE ×2 (09:36→13:33)
[2018-11-03] MEDS: THIAMINE HCL 100 MG TABLET (FP) PO SCH (09:50)
[2018-11-03] MEDS: NICOTINE 14 MG/24 HOURS TOPICAL PATCH TD SCH (09:51)
[2018-11-03] MEDS: risperiDONE 1 MG TABLET (FP) PO SCH (09:51)
[2018-11-03] MEDS: FOLIC ACID 1 MG TABLET (FP) PO SCH (09:51)
[2018-11-03] MEDS: PANTOPRAZOLE 40 MG TABLET (FP) PO SCH (09:51)
[2018-11-03] MEDS: BENZTROPINE MESYLATE 1 MG TABLET (FP) PO SCH (09:51)
[2018-11-03] MEDS: MULTIVITAMINS (DAILY MVI) TABLET (FP) PO SCH (09:51)
[2018-11-03 13:57] VITALS: BP 107/68; PULSE 59; TEMP 98
--- NOTE | 2018-11-03 15:05 | PN ---
Progress Note (short form) - Note Progress Note: SUBJECTIVE: Feels well - no complaints. No further abdominal pain/nausea/ vomiting/diarrhea. No fever/chills OBJECTIVE Afebrile, Hemodynamically Stable. Last Vital Signs Temp Pulse Resp BP Pulse Ox 98 F 59 L 18 107/68 96 11/03/18 13:55 11/03/18 13:55 11/03/18 13:55 11/03/18 13:55 11/03/18 09:00 HEENT - Atraumatic, Normocephalic. Mild tremor of outstretched arms. Heart - S1, S2, RRR Lungs - Clear to auscultation Abdomen - Soft, non-tender. No guarding/rebound. Bowel Sounds normal. Extremities - No edema/ No calf tenderness. Neuro - AAO x 2-3. Moving all 4 extremities. Current Medications Generic Name Dose Route Start Last Admin Trade Name Freq PRN Reason Stop Dose Admin Benztropine Mesylate 1 mg 10/31/18 22:00 11/03/18 09:51 Cogentin - PO 1 mg BID MULU Administration Diphenhydramine HCl 25 mg 10/31/18 22:00 11/02/18 21:05 Benadryl - PO 25 mg HS MULU Administration Folic Acid 1 mg 11/01/18 10:00 11/03/18 09:51 Folic Acid - PO 1 mg DAILY MULU Administration Heparin Sodium (Porcine) 5,000 unit 10/31/18 22:00 11/03/18 13:28 Heparin - SQ 5,000 unit TID MULU Administration Lorazepam 1 mg 10/31/18 18:22 Ativan - PO Q4H PRN WITHDRAWAL(CONT SUBST) Multivitamins/Minerals/Vitamin C 1 tab 11/01/18 10:00 11/03/18 09:51 Tab-A-Vit - PO 1 tab DAILY MULU Administration Nicotine 14 mg 11/01/18 15:15 11/03/18 09:51 Nicoderm Patch - TD 14 mg DAILY MULU Administration Ondansetron HCl 8 mg 10/31/18 21:18 Zofran Injection IVPB Q8H PRN NAUSEA Pantoprazole Sodium 40 mg 11/02/18 10:00 11/03/18 09:51 Protonix - PO 40 mg DAILY MULU Administration Risperidone 1 mg 10/31/18 22:00 11/03/18 09:51 Risperdal - PO 1 mg BID MULU Administration Thiamine HCl 100 mg 11/01/18 10:00 11/03/18 09:50 Vitamin B1 - PO 100 mg DAILY MULU Administration ASSESSMENT AND PLAN: 63 [facility] [place] with history of alcohol abuse, alcohol related pancreatitis, alcohol withdrawal seizure x 2, Schizoaffective Disorder, presented with 1 week history of abdominal pain, nausea, vomiting, diarrhea. He had recent admission at [facility] for Pancreatitis and left AMA. Last alcoholic beverage 10/30/[address] A/P - no evidence of Pancreatitis Lipase mildly elevated, suspect chronic. Abdominal pain/nausea/vomiting/diarrhea resolved. Tolerating oral intake. 2. History of Alcohol Abuse and Alcohol withdrawal Seizures Monitor with CIWA for signs of Alcohol withdrawal and ativan prn as per protocol. Banana Bag, Thiamine, Folate, MVI. Evaluated by Addiction Medicine - for transfer to [facility] once bed becomes available. However, patient is not withdrawing and has not required ativan. Possible DC home vs Rehab pending PT eval. 3. Elevated Transaminases sec to Alcohol excess +/- Hepatitis C Unclear whether this is a known diagnosis. Hep serology on this admission returned HepC Ab positive. Abdominal US normal. Gi consulted - patient is an active drinker and not a candidate for HepC treatment at this time. 4. Schizoaffective Disorder - no delusions/hallucinations. Continue Risperidone and Benztropine. 5. Hyperkalemia, resolved s/p Kayexalate. DVT Px - Heparin SQ GI Px - PPI Problem List - Problems (1) Elevated lipase Code(s): R74.8 - ABNORMAL LEVELS OF OTHER SERUM ENZYMES Visit type - Emergency Visit Emergency Visit: Yes ED Registration Date: 10/31/18 Care time: The patient presented to the Emergency Department on the above date and was hospitalized for further evaluation of their emergent condition. - New Patient This patient is new to me today: No - Critical Care Critical Care patient: No - Discharge Referral Referred to [facility] Med P.C.: No
--- NOTE | 2018-11-03 15:50 | DS ---
Physical Exam: SUBJECTIVE: Feels well - no complaints. No further abdominal pain/nausea/ vomiting/diarrhea. No fever/chills OBJECTIVE Afebrile, Hemodynamically Stable. Last Vital Signs Temp Pulse Resp BP Pulse Ox 98 F 59 L 18 107/68 96 11/03/18 13:55 11/03/18 13:55 11/03/18 13:55 11/03/18 13:55 11/03/18 09:00 HEENT - Atraumatic, Normocephalic. Mild tremor of outstretched arms. Heart - S1, S2, RRR Lungs - Clear to auscultation Abdomen - Soft, non-tender. No guarding/rebound. Bowel Sounds normal. Extremities - No edema/ No calf tenderness. Neuro - AAO x 2-3. Moving all 4 extremities. Laboratory Tests 10/31/18 10/31/18 10/31/18 12:00 14:05 16:55 WBC 6.4 RBC 5.15 Hgb 15.5 Hct 44.8 MCV 86.9 MCH 30.1 MCHC 34.7 RDW 15.2 Plt Count 227 D MPV 8.3 Absolute Neuts (auto) 4.0 Neutrophils % 62.4 Lymphocytes % 23.5 D Monocytes % 12.6 H Eosinophils % 0.4 D Basophils % 1.1 Nucleated RBC % 0 PT with INR INR Sodium 134 L Potassium 5.9 H Chloride 102 Carbon Dioxide 26 Anion Gap 6 L BUN 13 Creatinine 1.4 H Creat Clearance w eGFR 51.02 Random Glucose 77 Calcium 8.8 Phosphorus Magnesium 2.0 Total Bilirubin 0.9 AST 133 H ALT 78 H Alkaline Phosphatase 87 LD Total 684 H Total Protein 8.4 H Albumin 3.5 Total Amylase 256 H Lipase 672 H Urine Color Urine Appearance Urine pH Ur Specific [place] Urine Protein Urine Glucose (UA) Urine Ketones Urine Blood Urine Nitrite Urine Bilirubin Urine Urobilinogen Ur Leukocyte Esterase Opiates Screen Methadone Screen Barbiturate Screen Phencyclidine Screen Ur Amphetamines Screen MDMA (Ecstasy) Screen Benzodiazepines Screen Cocaine Screen U Marijuana (THC) Screen Hepatitis A IgM Ab Hep Bs Antigen Hep B Core IgM Ab Hepatitis C Antibody 11/01/18 11/01/18 11/01/18 05:40 05:40 05:40 WBC 5.1 RBC 4.97 Hgb 14.1 Hct 43.7 MCV 87.8 MCH 28.4 MCHC 32.3 RDW 14.6 Plt Count 189 MPV 8.7 Absolute Neuts (auto) 2.4 Neutrophils % 47.3 D Lymphocytes % 35.8 D Monocytes % 12.7 H Eosinophils % 3.3 D Basophils % 0.9 Nucleated RBC % 0 PT with INR 13.00 INR 1.10 H Sodium 139 Potassium 4.2 Chloride 109 H Carbon Dioxide 26 Anion Gap 4 L BUN 19 H Creatinine 1.1 Creat Clearance w eGFR > 60 Random Glucose 80 Calcium 7.8 L Phosphorus 3.2 Magnesium 2.0 Total Bilirubin 0.8 AST 74 H ALT 58 Alkaline Phosphatase 62 LD Total Total Protein 5.9 L Albumin 2.6 L Total Amylase Lipase 743 H Urine Color Urine Appearance Urine pH Ur Specific [place] Urine Protein Urine Glucose (UA) Urine Ketones Urine Blood Urine Nitrite Urine Bilirubin Urine Urobilinogen Ur Leukocyte Esterase Opiates Screen Methadone Screen Barbiturate Screen Phencyclidine Screen Ur Amphetamines Screen MDMA (Ecstasy) Screen Benzodiazepines Screen Cocaine Screen U Marijuana (THC) Screen Hepatitis A IgM Ab Hep Bs Antigen Hep B Core IgM Ab Hepatitis C Antibody 11/01/18 11/01/18 11/01/18 05:40 11:00 11:00 WBC RBC Hgb Hct MCV MCH MCHC RDW Plt Count MPV Absolute Neuts (auto) Neutrophils % Lymphocytes % Monocytes % Eosinophils % Basophils % Nucleated RBC % PT with INR INR Sodium Potassium Chloride Carbon Dioxide Anion Gap BUN Creatinine Creat Clearance w eGFR Random Glucose Calcium Phosphorus Magnesium Total Bilirubin AST ALT Alkaline Phosphatase LD Total Total Protein Albumin Total Amylase Lipase Urine Color Yellow Urine Appearance Clear Urine pH 7.0 Ur Specific [place] 1.016 Urine Protein Negative Urine Glucose (UA) Negative Urine Ketones Negative Urine Blood Negative Urine Nitrite Negative Urine Bilirubin Negative Urine Urobilinogen 4.0 e.u/dl Ur Leukocyte Esterase Negative Opiates Screen Negative Methadone Screen Negative Barbiturate Screen Negative Phencyclidine Screen Negative Ur Amphetamines Screen Negative MDMA (Ecstasy) Screen Negative Benzodiazepines Screen Positive A* Cocaine Screen Negative U Marijuana (THC) Screen Negative Hepatitis A IgM Ab Negative Hep Bs Antigen Negative Hep B Core IgM Ab Negative Hepatitis C Antibody >11.0 H Date of Admission:10/31/18 Date of Discharge: 11/03/18 Minutes to complete discharge: 45 Discharge Summary Reason For Visit: HYPERKALEMIA Current Active Problems Alcohol abuse (Acute) Alcoholic hepatitis (Acute) Elevated lipase (Acute) Hepatitis C (Acute) Hyperkalemia (Acute) Liver function test abnormality (Acute) Tremor of both hands (Acute) Hospital Course: ASSESSMENT AND PLAN: 63 year old male from detention with history of alcohol abuse, alcohol related pancreatitis, alcohol withdrawal seizure x 2, Schizoaffective Disorder, presented with 1 week history of abdominal pain, nausea, vomiting, diarrhea. He had recent admission at [facility] for Pancreatitis and left AMA. Last alcoholic beverage 10/30/[address] A/P - no evidence of Pancreatitis Lipase mildly elevated, suspect chronic. Abdominal pain/nausea/vomiting/diarrhea resolved. Tolerating oral intake. 2. History of Alcohol Abuse and Alcohol withdrawal Seizures Monitored with CIWA for signs of Alcohol withdrawal and ativan prn as per protocol - has not required Ativan for more than 48 hours. Was given Banana Bag, and initiated on Thiamine, Folate, MVI. Evaluated by Addiction Medicine - for transfer to [facility] once bed becomes available. However, patient is not withdrawing and has not required ativan. Medically stable for discharge to detention. 3. Elevated Transaminases sec to Alcohol excess +/- Hepatitis C Unclear whether this is a known diagnosis. Hep serology on this admission returned HepC Ab positive. Abdominal US normal. GI consulted - patient is an active drinker and not a candidate for HepC treatment at this time - follow up with GI on discharge. 4. Schizoaffective Disorder - no delusions/hallucinations. Continue Risperidone and Benztropine. 5. Hyperkalemia, resolved s/p Kayexalate. 6. Smoker - counselled and prescribed nicotine patches. Condition: Good - Instructions Diet, Activity, Other Instructions: Strongly advise against alcohol intake Referrals: Margret Pro DO [Staff Physician] - 1 Week Brady Myers MD [Staff Physician] - 1 Week Disposition: HOME - Home Medications Comprehensive Discharge Medication List: Ambulatory Orders Benztropine Mesylate [Cogentin -] 1 mg PO BID 02/19/12 Risperidone [Risperdal] 1 mg PO BID 02/19/12 Diphenhydramine HCl [Benadryl Capsule -] 25 mg PO HS 10/24/18 Folic Acid - 1 mg PO DAILY #30 tablet 11/03/18 Multivitamins [Multivit ([facility] Formulary)] 1 tab PO DAILY #30 tab 11/03/18 Nicotine Patch [Nicoderm Patch -] 14 mg TD DAILY #20 patch 11/03/18 Pantoprazole Sodium [Protonix -] 40 mg PO DAILY #30 tablet.ec 11/03/18 Thiamine HCl [Vitamin B1 -] 100 mg PO DAILY #30 tablet 11/03/18 Problem List - Problems (1) Elevated lipase Code(s): R74.8 - ABNORMAL LEVELS OF OTHER SERUM ENZYMES This patient is new to me today: No Emergency Visit: Yes ED Registration Date: 10/31/18 Care time: The patient presented to the Emergency Department on the above date and was hospitalized for further evaluation of their emergent condition. Critical Care patient: No - Discharge Referral Referred to [facility] Med P.C.: No
== END 2018-11-03 17:27 | disposition home or self-care (01) | DRG 280 ==
LOC: JER 10:22 → JERBED 16:47 → J4W 11-01 01:00
DX: K70.10 Alcoholic hepatitis without ascites (principal); F10.20 Alcohol dependence, uncomplicated; R74.0 Nonspecific elevation of levels of transaminase and lactic acid dehydrogenase [LDH]; F25.9 Schizoaffective disorder, unspecified; B19.20 Unspecified viral hepatitis C without hepatic coma; R25.1 Tremor, unspecified; R74.8 Abnormal levels of other serum enzymes; E87.5 Hyperkalemia
CPT/HCPCS: 36415; 74150-TC; 76705-TC; 80053; 80074; 80307; 81003; 82150; 83615; 83690; 83735; 84100; 85025; 85610; 87086; 87522; 93005; 93010; 97116-GP; 97161-GP; 99283-25; J1644; J2794; J7030

== ENCOUNTER 2019-12-30 15:24 | Emergency (ER) | payer OTHER ==
--- NOTE | 2019-12-30 15:34 | PDOC ---
Rapid Medical Evaluation Time Seen by Provider: 12/30/19 15:29 Medical Evaluation: Allergies Allergy/AdvReac Type Severity Reaction Status Date / Time No Known Allergies Allergy Verified 10/31/18 10:37 12/30/19 15:31 CC: right hip pain s/p fall down ?# of stairs; PMHx dementia PE: TTP over right hip. No shortening of extremity. Orders: xray Patient will proceed to ED for further evaluation. Discharge Disposition - Diagnosis Right hip pain - Referrals - Patient Instructions - Post Discharge Activity
[2019-12-30 15:35] VITALS: BMI 21.4
--- NOTE | 2019-12-30 15:58 | PDOC ---
History of Present Illness - General Chief Complaint: Injury Stated Complaint: FALL Time Seen by Provider: 12/30/19 15:29 History Source: Patient - History of Present Illness Initial Comments: 12/30/19 17:21 Mr. Irwin is a 64 y/o man w/no known PMH (undomiciled, not well linked to medical care) [facility]. He reports walking down a flight of carpeted steps when he tripped over a bit of the carpet that was raised. He reports immediately grasping the handrail and catching himself. He denies any palpitations, chest pain, head injury, weakness, confusion, LOC, head or neck pain. He reports stiffness in his R foot, as well as R hip pain. Past History - Past Medical History Allergies/Adverse Reactions: Allergies Allergy/AdvReac Type Severity Reaction Status Date / Time No Known Allergies Allergy Verified 12/30/19 15:35 Home Medications: Ambulatory Orders Benztropine Mesylate [Cogentin -] 1 mg PO BID 02/19/12 Risperidone [Risperdal] 1 mg PO BID 02/19/12 Diphenhydramine HCl [Benadryl Capsule -] 25 mg PO HS 10/24/18 Folic Acid - 1 mg PO DAILY #30 tablet 11/03/18 Multivitamins [Multivit ([facility] Formulary)] 1 tab PO DAILY #30 tab 11/03/18 Nicotine Patch [Nicoderm Patch -] 14 mg TD DAILY #20 patch 11/03/18 Pantoprazole Sodium [Protonix -] 40 mg PO DAILY #30 tablet.ec 11/03/18 Thiamine HCl [Vitamin B1 -] 100 mg PO DAILY #30 tablet 11/03/18 Asthma: No Cardiac Disorders: No COPD: No Diabetes: No GI Disorders: No Disorders: No HTN: No Kidney Stones: No Liver Disease: Yes Seizures: Yes (alcohol related) - Surgical History Abdominal Surgery: No Appendectomy: No Cardiac Surgery: No Cholecystectomy: No Lung Surgery: No Neurologic Surgery: No Orthopedic Surgery: Yes (SX ON LEFT WRIST DUE TO FALL AT 16 YRS OLD) - Reproductive History Testicular Surgery: No - Immunization History Immunization Up to Date: Yes - Psycho Social/Smoking Cessation Hx Smoking History: Current every day smoker Have you smoked in the past 12 months: Yes Number of Cigarettes Smoked Daily: 5 Information on smoking cessation initiated: No 'Breaking Loose' booklet given: 11/01/18 Hx Alcohol Use: Yes Drug/Substance Use Hx: Yes (heroin) Substance Use Type: Alcohol Hx Substance Use Treatment: Yes Review of Systems - Review of Systems Able to Perform ROS?: Yes Comments:: 12/30/19 22:46 ROS: GENERAL/CONSTITUTIONAL: No fever or chills. No weakness. HEAD, EYES, EARS, NOSE AND THROAT: No change in vision. No ear pain or discharge. No sore throat. CARDIOVASCULAR: No chest pain or shortness of breath RESPIRATORY: No cough, wheezing, or hemoptysis. GASTROINTESTINAL: No nausea, vomiting, diarrhea or constipation. GENITOURINARY: No dysuria, frequency, or change in urination. MUSCULOSKELETAL: R foot stiffness, R hip pain. No other joint or muscle swelling or pain. No neck or back pain. SKIN: No rash NEUROLOGIC: No headache, vertigo, loss of consciousness, or change in strength/ sensation. ENDOCRINE: No increased thirst. No abnormal weight change HEMATOLOGIC/LYMPHATIC: No anemia, easy bleeding, or history of blood clots. ALLERGIC/IMMUNOLOGIC: No hives or skin allergy. *Physical Exam - Vital Signs Last Vital Signs Temp Pulse Resp BP Pulse Ox 98.9 F 72 16 146/92 96 12/30/19 15:29 12/30/19 15:29 12/30/19 15:29 12/30/19 15:29 12/30/19 15:29 - Physical Exam 12/30/19 22:46 PE: GENERAL: Awake, alert, and fully oriented, in no acute distress HEAD: No signs of trauma, normocephalic, atraumatic EYES: PERRLA, EOMI, sclera anicteric, conjunctiva clear ENT: Auricles normal inspection, hearing grossly normal, nares patent, oropharynx clear without exudates. Moist mucosa NECK: Normal ROM, supple, no lymphadenopathy, JVD, or masses LUNGS: No distress, speaks full sentences, clear to auscultation bilaterally HEART: Regular rate and rhythm, normal S1 and S2, no murmurs, rubs or gallops, peripheral pulses normal and equal bilaterally. ABDOMEN: Soft, nontender, normoactive bowel sounds. No guarding, no rebound. No masses EXTREMITIES : Normal inspection, Normal range of motion, no edema. No clubbing or cyanosis NEUROLOGICAL: Cranial nerves II through XII grossly intact. Normal speech, normal gait, no focal sensorimotor deficits SKIN: Warm, Dry, normal turgor, no rashes or lesions noted Medical Decision Making - Medical Decision Making 12/30/19 18:58 64M w/no known PMH p/w mechanical fall, no LOC, head or neck injury, or any weakness c/o R hip pain without deformity. Ddx femur/pelvic fracture although no deformity on exam. MSK pain also possible s/p fall. Plan: CT Head CT cervical spine XR R hip Acetaminophen 975mg Dispo: Discharge --- On reassessment, still endorsing some pain to R hip. Plan for toradol 15mg --- XR hip negative for fracture CT head, CT cervical spine negative for acute process. Plan for discharge. Discharge - Discharge Information Problems reviewed: Yes Clinical Impression/Diagnosis: Right hip pain Condition: Stable Disposition: HOME - Admission No - Follow up/Referral - Patient Discharge Instructions Patient Printed Discharge Instructions: How to Prevent Falls Additional Instructions: You were seen in the ER after stumbling on the staircase. Your hip X-ray and CT scans were normal. Please be sure to follow up with your primary care provider as soon as possible, in the next 2-3 days. Return to the ER if you develop a worsening headache, weakness, chest pain, difficulty breathing, or are unable to walk. - Post Discharge Activity
[2019-12-30] MEDS ORDERED: ACETAMINOPHEN 500 MG TABLET (FP) PO ONE (17:15)
[2019-12-30] MEDS ORDERED: ACETAMINOPHEN 325 MG TABLET (FP) ONE (17:37)
[2019-12-30] MEDS ORDERED: KETOROLAC TROMETHAMINE 15 MG/ML VIAL IM ONE (18:25)
[2019-12-30] MEDS ORDERED: KETOROLAC TROMETHAMINE 15 MG/ML VIAL ONE (18:34)
--- NOTE | 2019-12-30 19:11 | PDOC ---
Documentation entered by Amalia Jason SCRIBE, acting as scribe for Claudia Greene MD. Claudia Greene MD: This documentation has been prepared by the Casie krause Xhesika, SCRIBE, under my direction and personally reviewed by me in its entirety. I confirm that the documentation accurately reflects all work, treatment, procedures, and medical decision making performed by me. Attending Attestation - Resident Resident Name: Jonathan Lopez - ED Attending Attestation I have performed the following: I have examined & evaluated the patient, The case was reviewed & discussed with the resident, I agree w/resident's findings & plan, Exceptions are as noted - HPI HPI: 12/30/19 18:12 64-year-old male who had a mechanical fall and has complaint of hip and back pain presented to the emergency department - Physicial Exam PE: 12/30/19 19:01 Tall, thin 64-year-old male looking older than stated age, slightly disheveled with a chronic hand tremor reports a mechanical fall today Head no scalp lacerations noted Eyes pupils are reactive to light and accommodation extraocular movements intact Neck no midline cervical vertebral tenderness Lungs are clear to auscultation CVS regular rate and rhythm S1-S2 Abdomen is flat Extremities no edema Skin is warm and dry Neuro he is alert and conversant with hand tremor - Medical Decision Making 12/30/19 19:02 CAT scan of the head did not show any acute intracranial pathology CAT scan of the cervical spine was negative for any fracture or subluxation Right hip radiograph did not show any fracture or dislocation
[2019-12-30 22:23] VITALS: BP 135/79; PULSE 61; TEMP 98.4
== END 2019-12-31 01:40 | disposition home or self-care (01) ==
LOC: JER 15:24
PROC: 3E0233Z Introduction of Anti-inflammatory into Muscle, Percutaneous Approach (ICD-10-PCS; principal; 2019-12-30)
DX: M25.551 Pain in right hip (principal); W10.8XXA Fall (on) (from) other stairs and steps, initial encounter; Y93.89 Activity, other specified; Y92.89 Other specified places as the place of occurrence of the external cause; Y99.8 Other external cause status; R25.1 Tremor, unspecified; F03.90 Unspecified dementia, unspecified severity, without behavioral disturbance, psychotic disturbance, mood disturbance, and anxiety; F17.210 Nicotine dependence, cigarettes, uncomplicated; Z59.0 Homelessness
CPT/HCPCS: 70450-TC; 72125-TC; 73523-TC-FY; 73630-TC-RT-FY; 96372; 99285-25